=== PATIENT | male | born 1930 | race Caucasian/White ===

== ENCOUNTER 2018-06-04 06:16 | Inpatient (IN) | payer MEDICARE, OTHER | END 2018-06-09 03:40 | disposition EXP | LOC: DAHIP 06:16 → 2CH 06-05 05:37 → 2CV 12:46 | PROC: 02RF0JZ Replacement of Aortic Valve with Synthetic Substitute, Open Approach (ICD-10-PCS; principal; 2018-06-04 10:20) | PROC: 5A1221Z Performance of Cardiac Output, Continuous (ICD-10-PCS; 2018-06-04 10:20) | DX: I35.0 Nonrheumatic aortic (valve) stenosis (principal); J96.91 Respiratory failure, unspecified with hypoxia; I25.810 Atherosclerosis of coronary artery bypass graft(s) without angina pectoris; I44.2 Atrioventricular block, complete; E87.3 Alkalosis; Z95.1 Presence of aortocoronary bypass graft ==